=== PATIENT | male | born 2000 | race African-American/Black ===

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

== ENCOUNTER 2024-03-27 15:57 | Emergency (ER) | payer BC, OTHER ==
--- NOTE | 2024-03-27 16:08 | ED ---
Headache HPI - General Source: patient, RN notes reviewed Mode of arrival: ambulatory Limitations: no limitations <Yuly Skelton - Last Filed: 03/27/24 16:06> - General Source: patient, RN notes reviewed, old records reviewed Mode of arrival: ambulatory Limitations: no limitations - History of Present Illness MD Complaint: headache -: days(s) Onset Description: sudden, gradual Location: right, left, frontal Severity: mild Severity scale (1-10): 4 Quality: aching Consistency: intermittent Improves With: nothing Worsens With: none, exertion/activity <Carlos Campbell - Last Filed: 03/28/24 18:43> - General Stated Complaint: headache,cody eye issue Time Seen by Provider: 03/27/24 16:07 - History of Present Illness Initial Comments: Quick note: 23-year-old male presented to ER for evaluation of headache and eye issues. He states for the past 2 weeks he has progressively worsening headache along with difficulty with blurry vision, floaters and seeing distance. He also reports dizziness. No head injuries. (Yuly Skelton) This is a 23-year-old male for dizziness and headache (Carlos Campbell) - Related Data Home Medications Medication Instructions Recorded Confirmed diphenhydrAMINE [Benadryl] 50 mg PO DAILY PRN 08/03/18 08/03/18 Previous Rx's Medication Instructions Recorded predniSONE [Deltasone] 20 mg PO DAILY 3 Days #3 tablet 08/03/18 Allergies Allergy/AdvReac Type Severity Reaction Status Date / Time No Known Allergies Allergy Verified 03/27/24 16:08 Review of Systems ROS Other: All systems not noted in ROS Statement are negative. <Yuly Skelton - Last Filed: 03/27/24 16:06> ROS Other: All systems not noted in ROS Statement are negative. <Carlos Campbell - Last Filed: 03/28/24 18:43> ROS Statement: Those systems with pertinent positive or pertinent negative responses have been documented in the HPI. Past Medical History Past Medical History: No Reported History History of Any Multi-Drug Resistant Organisms: None Reported Past Surgical History: No Surgical Hx Reported Past Psychological History: No Psychological Hx Reported Smoking Status: Never smoker Past Alcohol Use History: None Reported Past Drug Use History: None Reported <Yuly Skelton - Last Filed: 03/27/24 16:06> General Exam <Yuly Skelton - Last Filed: 03/27/24 16:06> General appearance: alert, in no apparent distress Head exam: Present: atraumatic, normocephalic, normal inspection Eye exam: Present: normal appearance, PERRL, EOMI. Absent: scleral icterus, conjunctival injection, periorbital swelling ENT exam: Present: normal exam, mucous membranes moist Neck exam: Present: normal inspection. Absent: tenderness, meningismus, lymphadenopathy Respiratory exam: Present: normal lung sounds bilaterally. Absent: respiratory distress, wheezes, rales, rhonchi, stridor Cardiovascular Exam: Present: regular rate, normal rhythm, normal heart sounds. Absent: systolic murmur, diastolic murmur, rubs, gallop, clicks GI/Abdominal exam: Present: soft, normal bowel sounds. Absent: distended, tenderness, guarding, rebound, rigid Extremities exam: Present: normal inspection, full ROM, normal capillary refill. Absent: tenderness, pedal edema, joint swelling, calf tenderness Back exam: Present: normal inspection Neurological exam: Present: alert, oriented X3, CN II-XII intact Psychiatric exam: Present: normal affect, normal mood Skin exam: Present: warm, dry, intact, normal color. Absent: rash <Carlos Campbell - Last Filed: 03/28/24 18:43> - General Exam Comments Initial Comments: Visual Physical Exam Vital signs reviewed General: Well-appearing, nontoxic, no acute distress. Head: Normocephalic, atraumatic Eyes: PERRLA, EOMI ENT: Airway patent Chest: Nonlabored breathing Skin: No visual rash, normal skin tone Neuro: Alert and oriented 3 Musculoskeletal: No gross abnormalities (Yuly Skelton) Course <Carlos Campbell - Last Filed: 03/28/24 18:43> Vital Signs 03/27/24 03/27/24 16:05 18:52 Temperature 98.5 F 98.5 F Pulse Rate 74 64 Respiratory 15 17 Rate Blood Pressure 119/65 128/74 O2 Sat by Pulse 100 100 Oximetry - Reevaluation(s) Reevaluation #1: Medical records reviewed (Carlos Campbell) Reevaluation #2: Patient symptoms improved (Carlos Campbell) Reevaluation #3: Patient informed of results and questions answered (Carlos Campbell) Reevaluation #4: Was pt. sent in by a medical professional or institution ([facility] Whittaker, [employer], urgent care, hospital, or prison...) When possible be specific @ -no Did you speak to anyone other than the patient for history (EMS, parent, family, police, friend...)? What history was obtained from this source @ -no Did you review nursing and triage notes (agree or disagree)? Why? @ -agree Are old charts reviewed (outside hosp., previous admission, EMS record, old EKG, old radiological studies, urgent care reports/EKG's, prison records)? Report findings @ -yes Differential Diagnosis (chest pain, altered mental status, abdominal pain women, abdominal pain men, vaginal bleeding, weakness, fever, dyspnea, syncope, headache, dizziness, GI bleed, back pain, seizure, CVA, palpatations, mental health, musculoskeletal)? @ -prior EKG interpreted by me (3pts min.). @ -yes X-rays interpreted by me (1pt min.). @ -yes negative for acute disease CT interpreted by me (1pt min.). @ -no U/S interpreted by me (1pt. min.). @ -no What testing was considered but not performed or refused? (CT, X-rays, U/S, labs)? Why? @ -none What meds were considered but not given or refused? Why? @ -none Did you discuss the management of the patient with other professionals ([facility] tabares i.e., Dr., [employer], lab, RT, psych nurse, social work manager, sales representative consultant, teacher, chief development officer, residential case manager)? Give summary @ -no Was smoking cessation discussed for >3mins.? @ -no Was critical care preformed (if so, how long)? @ -no Were there social determinants of health that impacted care today? How? (Homelessness, low income, unemployed, alcoholism, drug addiction, transportation, low edu. Level, literacy, decrease access to med. care, correction, rehab)? @ -none Was there de-escalation of care discussed even if they declined (Discuss DNR or withdrawal of care, Hospice)? DNR status @ -no What co-morbidities impacted this encounter? (DM, HTN, Smoking, COPD, CAD, Cancer, CVA, ARF, Chemo, Hep., AIDS, mental health diagnosis, sleep apnea, morbid obesity)? @ -none Was patient admitted / discharged? Hospital course, mention meds given and route, prescriptions, significant lab abnormalities, going to OR and other pertinent info. @ - Undiagnosed new problem with uncertain prognosis? @ -no Drug Therapy requiring intensive monitoring for toxicity (Heparin, Nitro, Insulin, Cardizem)? @ -no Were any procedures done? @ -no Diagnosis/symptom? @ - Acute, or Chronic, or Acute on Chronic? @ -Acute Uncomplicated (without systemic symptoms) or Complicated (systemic symptoms)? @ -Complicated Side effects of treatment? @ -no Exacerbation, Progression, or Severe Exacerbation? @ -exacerbation Poses a threat to life or bodily function? How? (Chest pain, [place], [place], pneumonia, PE, COPD, DKA, ARF, appy, cholecystitis, CVA, Diverticulitis, Homicidal, Suicidal, threat to staff... and all critical care pts) @ -yes (Carlos Campbell) Reevaluation #5: Differential Headache: Migraine, tension, cluster, carbon monoxide, central venous thrombosis, pension karma temporal arteritis, acute closure glaucoma, intercranial hemorrhage, mastoiditis, sinusitis, head injury, this is not meant to be an all-inclusive list. (Carlos Campbell) Medical Decision Making <Yuly Skelton - Last Filed: 03/27/24 16:06> - Lab Data Result diagrams: 03/27/24 16:46 03/27/24 16:46 - Radiology Data Radiology results: report reviewed (CT brain is negative for acute disease), image reviewed <Carlos Campbell - Last Filed: 03/28/24 18:43> - Medical Decision Making I performed the quick note portion of this chart. Electronically signed by Yuly Skelton PA-C (Yuly Skelton) 23 male with headache and dizziness no acute findings here in the ER patient can be discharged home (Carlos Campbell) - Lab Data Lab Results 03/27/24 03/27/24 03/27/24 Range/Units 16:46 16:46 16:46 WBC 4.1 (3.8-10.6) k/uL RBC 5.20 (4.30-5.90) m/uL Hgb 16.5 (13.0-17.5) gm/dL Hct 49.1 (39.0-53.0) % MCV 94.4 (80.0-100.0) fL MCH 31.7 (25.0-35.0) pg MCHC 33.6 (31.0-37.0) g/dL RDW 12.8 (11.5-15.5) % Plt Count 247 (150-450) k/uL MPV 6.9 Neutrophils % 55 % Lymphocytes % 35 % Monocytes % 5 % Eosinophils % 1 % Basophils % 1 % Neutrophils # 2.3 (1.3-7.7) k/uL Lymphocytes # 1.4 (1.0-4.8) k/uL Monocytes # 0.2 (0-1.0) k/uL Eosinophils # 0.1 (0-0.7) k/uL Basophils # 0.0 (0-0.2) k/uL Sodium 139 (137-145) mmol/L Potassium 4.9 (3.5-5.1) mmol/L Chloride 107 (98-107) mmol/L Carbon Dioxide 24 (22-30) mmol/L Anion Gap 8 mmol/L BUN 15 (9-20) mg/dL Creatinine 1.29 H (0.66-1.25) mg/dL Est GFR (CKD-EPI)AfAm >90 (>60 ml/min/1.73 sqM) Est GFR (CKD-EPI)NonAf 79 (>60 ml/min/1.73 sqM) Glucose 99 (74-99) mg/dL Calcium 9.5 (8.4-10.2) mg/dL Total Bilirubin 0.7 (0.2-1.3) mg/dL AST 22 (17-59) U/L ALT 24 (4-49) U/L Alkaline Phosphatase 47 (38-126) U/L Total Protein 7.6 (6.3-8.2) g/dL Albumin 4.7 (3.5-5.0) g/dL Influenza Type A (PCR) Not Detected (Not Detectd) Influenza Type B (PCR) Not Detected (Not Detectd) RSV (PCR) Not Detected (Not Detectd) SARS-CoV-2 (PCR) Not Detected (Not Detectd) Disposition <Yuly Skelton - Last Filed: 03/27/24 16:06> Is patient prescribed a controlled substance at d/c from ED?: No Time of Disposition: 18:30 <Carlos Campbell - Last Filed: 03/28/24 18:43> Clinical Impression: Dizziness Disposition: HOME SELF-CARE Condition: Good Instructions (If sedation given, give patient instructions): Dizziness (ED) Referrals: None,Stated [Primary Care Provider] - 1-2 days
[2024-03-27 16:09] VITALS: TEMP 98.5
--- NOTE | 2024-03-27 16:37 | CT ---
EXAMINATION TYPE: CT brain wo con DATE OF EXAM: 03/27/2024 4:31 PM COMPARISON: None. CLINICAL INDICATION: Male, 23 years old with history of headache visual defects, Headache and dizzine ss x 2 weeks. TECHNIQUE: Brain: Axial CT images of the brain were obtained with coronal and sagittal reformats created and rev iewed. Contrast used: None. Oral contrast used: None. CT DLP: 1158.4 mGycm, Automated exposure control for dose reduction was used. FINDINGS: Brain: Extra-axial spaces: No abnormal extra-axial fluid collections. Ventricular system: Within normal limits Cerebral parenchyma: No acute intraparenchymal hemorrhage or mass effect. The martinez-white junction is well differentiated. Cerebellum: Unremarkable. Mass effect: No evidence of midline shift. Intracranial vasculature: unremarkable Soft tissues: Normal. Calvarium/osseous structures: No depressed skull fracture. Paranasal sinuses and mastoid air cells: Mild scattered paranasal sinus disease. Visualized orbits: Orbital contents are intact. IMPRESSION: No acute intracranial process. [facility], , 03/27/2024 4:34 PM
[2024-03-27 16:52] LABS: Basophils % (A) 1 %; Eosinophils # (A) 0.1 k/uL (0-0.7); Eosinophils % (A) 1 %; HCT 49.1 % (39.0-53.0); HGB 16.5 gm/dL (13.0-17.5); Lymphocytes # (A) 1.4 k/uL (1.0-4.8); Lymphocytes % (A) 35 %; MCH 31.7 pg (25.0-35.0); MCHC 33.6 g/dL (31.0-37.0); MCV 94.4 fL (80.0-100.0); Mean Platelet Volume 6.9; Monocytes # (A) 0.2 k/uL (0-1.0); Monocytes % (A) 5 %; Neutrophils # (A) 2.3 k/uL (1.3-7.7); Neutrophils % (A) 55 %; Platelet Count 247 k/uL (150-450); RDW 12.8 % (11.5-15.5); WBC 4.1 k/uL (3.8-10.6)
[2024-03-27 17:02] LABS: ALT 24 U/L (4-49); AST 22 U/L (17-59); African American GFR (CKD) >90 (>60 ml/min/1.73 sqM); Albumin 4.7 g/dL (3.5-5.0); Alkaline Phosphatase 47 U/L (38-126); Anion Gap 8 mmol/L; Blood Urea Nitrogen 15 mg/dL (9-20); Calcium 9.5 mg/dL (8.4-10.2); Carbon Dioxide 24 mmol/L (22-30); Chloride 107 mmol/L (98-107); Glucose 99 mg/dL (74-99); Non-African American GFR(CKD) 79 (>60 ml/min/1.73 sqM); Potassium 4.9 mmol/L (3.5-5.1); Sodium 139 mmol/L (137-145); Total Bilirubin 0.7 mg/dL (0.2-1.3); Total Protein 7.6 g/dL (6.3-8.2)
[2024-03-27 18:53] VITALS: BP 128/74; PULSE 64; RESP 17
== END 2024-03-27 18:53 | disposition home or self-care (01) ==
LOC: EC 15:57
DX: R42 Dizziness and giddiness (principal)
CPT/HCPCS: 36415; 70450; 80053; 85025; 87636; 99284